=== PATIENT | male | born 1930 | race Caucasian/White ===

== ENCOUNTER 2017-08-05 17:30 | Observation (INO) | payer OTHER ==
[~2017-08-05] VITALS: Ht 180.3 cm; Wt 77.1 kg
--- NOTE | 2017-08-05 20:40 | ED GI/GU/ABDOMINAL COMPLAINT ---
History of Present Illness General Chief Complaint: Male Genitourinary Problems Stated Complaint: PLASCENCIA CATHETER PROBLEMS BLOOD IN URINE Source: patient, old records Exam Limitations: no limitations Vital Signs & Intake/Output Vital Signs & Intake/Output Vital Signs Date Time Temp Pulse Resp B/P B/P Pulse O2 O2 Flow FiO2 Mean Ox Delivery Rate 08/05 2256 61 20 142/63 98 Room Air 08/05 2134 65 20 135/65 99 Room Air 08/05 1839 97.4 63 15 126/66 98 Room Air Room Air ED Intake and Output 08/06 0000 08/05 1200 Intake Total Output Total Balance Patient 170 lb Weight Weight Reported by Patient Measurement Method Allergies Coded Allergies: acetaminophen (From VICODIN) (ITCHING 08/05/17) hydrocodone (From VICODIN) (ITCHING 08/05/17) Triage Note: PT SENT TO ED BY DR. ARTHUR FOR BLOOD PLASCENCIA CATHETER. PT HAD CATHETER PLACED YESTERDAY IN [facility]S OFFICE FOR FREQUENT BLOCKAGES IN BLADDER. PT UNSURE SPECIFICALLY WHAT IT IS. DISCOMFORT IN PENIS WELL. SENT FOR POSSIBLE ABD CT. Triage Nurses Notes Reviewed? yes Onset: Abrupt Duration: day(s): (1), constant Timing: recent history Quality/Severity: aching, moderate, sharpness Severity Numbers: 7 Location: suprapubic, urethral Radiation: no radiation Activities at Onset: none Prior Abdominal Problems: none No Modifying Factors: none Associated Symptoms: DENIES HPI: 86-year-old male on Plavix for history of 2 coronary stents aspirin presents sent in by his urologist Dr. Arthur. Patient states for the past 1 week he's had hematuria he was placed on amoxicillin by his primary care physician Dr. Ashraf and was advised to follow-up with Dr. Arthur which she did today. He placed a Plascencia catheter and advised him to come to the emergency room for a CAT scan and blood work after the patient states he had one episode of dizziness upon standing yesterday. He denies any abdominal pain, or decreased or little output in the Plascencia catheter. No nausea no vomiting no fever no chills (Linda PALOMARES,Brandon) Past History Travel History Traveled to [place] past 21 day No Medical History Any Pertinent Medical History? see below for history Cardiovascular: hypertension, CARDIAC STENT Blood Disorders: NONE Cancer(s): NONE Surgical History Surgical History: bilateral inguinal hernia surgery - Mar 2017 Psychosocial History What is your primary language Danish Tobacco Use: Quit >30 days ago ETOH Use: denies use Illicit Drug Use: denies illicit drug use Family History Hx Contributory? No (Brandon Pop) Review of Systems Review of Systems Constitutional: Reports: see HPI. Comments Review of systems: See HPI, All other systems negative. Constitutional, no chills no fever HEENT: no sore throat no congestion Cardiovascular: No chest pain Skin: no rashes, no change in skin Respiratory: No dyspnea no cough no sputum GI: No nausea no vomiting, : No dysuria no frequency Muscle skeletal: No joint pain, no back pain, no neck pain, Neurologic: , no headache Heme/endocrine: No bruising (Brandon Pop) Physical Exam Physical Exam General Appearance: well developed/nourished, alert, awake Gastrointestinal: normal bowel sounds, soft, non-tender Comments: Well-developed well-nourished person in no acute distress HEENT: Normal EENT exam; PERRL, EOMI, no nystagmus. HEAD is atraumatic. moist mucous membranes. Neck: Supple, no lymphadenopathy, normal range of motion without pain or tenderness Back: Nontender, no CVA tenderness. Full range of motion Cardiovascular: Regular rate and rhythms no murmurs rubs or gallops, normal JVP Respiratory: Chest nontender.There were no bony deformities, no asymmetry. No respiratory distress. Patient speaking in full complete sentences. Breath sounds clear to auscultation bilaterally: NO W/R/R Abdomen: Soft, nontender nondistended, no appreciable organomegaly. Normal bowel sounds. No rebound/guarding, Male : Normal external genitalia, testes nontender. No scrotal swelling or mases, No lesions/discharge. Blood noted to Plascencia bag Extremity: No edema, full range of motion of extremities Neuro: Alert oriented x3, motor sensory normal,. There were no obvious focal neurologic abnormalities. Skin: No appreciable rash on exposed skin, skin is warm and dry. Psych: Mood and affect is normal, memory and judgment is normal. Core Measures ACS in differential dx? No Sepsis Present: No Sepsis Focused Exam Completed? No (Brandon Pop) Progress Differential Diagnosis: ureterolithiasis, urinary retention, UTI/pyelo Plan of Care: Orders Procedure Date/time Status Nothing by Mouth 08/06 B Active Patient Data 08/06 221 Active Pathway - chart 08/05 2306 Active Code Status 08/[address] in observation 08/06 2247 Active ED Holding Orders 08/06 2247 Active Vital Signs 08/06 2247 Active Code Status 08/06 2247 Complete MISTAKE 08/05 2105 Active PARTIAL THROMBOPLASTIN TIME 08/05 2105 Complete PROTHROMBIN TIME 08/05 2105 Complete COMPREHENSIVE METABOLIC PANEL 08/05 2105 Complete CBC WITHOUT DIFFERENTIAL 08/05 2105 Complete CULTURE,URINE 08/05 174 Active URINALYSIS 08/05 174 Complete VTE Mechanical Prophylaxis 08/05 UNK Active Vital Signs 08/05 UNK Active Intake & Output 08/05 UNK Active Plascencia, Insertion/Removal/Asses 08/05 UNK Active Current Medications Sig/Evon Start time Last Medication Dose Stop Time Status Admin Sodium Chloride 1,000 ML .[id number] 08/05 2300 AC 08/05 (Normal Saline 0.9%) 2314 Sodium Chloride 1,000 ML ONCE ONE 08/05 2300 AC (Normal Saline 0.9%) 08/06 0539 Laboratory Tests 08/05/17 2136: Anion Gap 12, Estimated GFR 48 L, BUN/Creatinine Ratio 20.7, Glucose 117 H, Calcium 9.5, Total Bilirubin 0.7, AST 19, ALT 21, Alkaline Phosphatase 93, Total Protein 6.7, Albumin 4.2, Globulin 2.5, Albumin/Globulin Ratio 1.7, PT 12.6 H, INR 1.15, APTT 26, CBC w Diff NO MAN DIFF REQ, RBC 4.29 L, MCV 88.8, MCH 29.5, MCHC 33.3, RDW 13.6, MPV 8.8, Gran % 76.4 H, Lymphocytes % 14.4 L, Monocytes % 7.7, Eosinophils % 1.1, Basophils % 0.4, Absolute Granulocytes 10.3 H, Absolute Lymphocytes 2.0, Absolute Monocytes 1.0 H, Absolute Eosinophils 0.1, Absolute Basophils 0.1 08/05/17 1848: Urine Color BLDY H, Urine Clarity CLDY H, Urine pH , Ur Specific [place] , Urine Protein , Urine Ketones , Urine Nitrite , Urine Bilirubin , Urine Urobilinogen , Ur Leukocyte Esterase , Ur Microscopic SEDIMENT EXAMINED, Urine RBC PACKD H, Urine WBC 50-75 H, Ur Epithelial Cells RARE, Urine Bacteria MOD H, Urine Hemoglobin , Urine Glucose Microbiology 08/05 184 URINE ROUT: Urine Culture - RECD Labs ordered CAT scan ordered. Call placed to urologist 08/05/2017 10:26:40 PM on repeat evaluation patient denies any complaints, he is still making urine through his Plascencia catheter bag discussed with him all his labs pending callback from Dr. Arthur. He denies pain. Case discussed with Dr. Arthur he advised that he is planning to take the patient to the operating room tomorrow morning. He will have the surgical PA place orders I discussed with the patient plan of care my discussion with Dr. Arthur he is resting otherwise in no acute distress Diagnostic Imaging: Viewed by Me: CT Scan. Discussed w/RAD: CT Scan. Radiology Impression: PATIENT: GERALD KOENIG PRESENT AGE: 86 PATIENT ACCOUNT NO: [id number] : 31 LOCATION: [facility] ORDERING PHYSICIAN: Brandon PALOMARES SERVICE DATE: 08/05/17 EXAM TYPE: CAT - CT ABD & PELVIS W/O IV CONTRAS EXAMINATION: CT ABDOMEN AND PELVIS WITHOUT CONTRAST CLINICAL INFORMATION: Hematuria. Plascencia catheter. Urinary retention. COMPARISON: CT scan abdomen pelvis 05/03/2015. Ultrasound of abdomen 11/19/2015 TECHNIQUE: Multidetector volumetric imaging was performed from the superior aspect of the liver through the pubic symphysis. Sagittal and coronal reformatted images were obtained on the technologist's workstation. DLP: 320.54 mGy-cm FINDINGS: LUNG BASES: Lung bases are clear. There is a moderate-sized hernia. There is vascular wall calcification of the coronary arteries. LIVER, GALLBLADDER, AND BILIARY TREE: The liver is normal in size, shape, and attenuation. No focal hepatic lesion or biliary ductal dilatation is present. There are several small densely calcified gallstones at the neck of the gallbladder. No edema around the gallbladder. No bile duct dilatation. PANCREAS: Unremarkable. SPLEEN: Unremarkable. ADRENAL GLANDS: Unremarkable. KIDNEYS AND URETERS: The kidneys are normal in size, shape, and attenuation. No hydronephrosis, hydroureter, or calculi seen. No perinephric stranding. BLADDER: Plascencia catheter within the bladder. Bladder is empty. GASTROINTESTINAL TRACT: There are scattered diverticula left colon and sigmoid. There is no diverticulitis. No acute change of the bowel. No bowel obstruction. No bowel wall thickening or edema. Small volume of stool in the colon. The appendix is not seen. There is no inflammation of the mesentery. The small bowel loops are unremarkable. ABDOMINAL WALL: No significant hernia is appreciated. LYMPH NODES: Normal. VASCULAR: Atherosclerotic vascular wall calcification of aorta and iliac vessels. No aneurysm. PELVIC VISCERA: Prostate is enlarged. Measures 6.5 cm transverse. OSSEOUS STRUCTURES: Degenerative spondylosis spine with multilevel endplate spurs of the vertebrae, disc height narrowing and facet joint arthrosis. IMPRESSION: 1. Enlarged prostate. Plascencia catheter within the bladder. No renal or ureteral calculi. No acute change of the kidneys or the ureter. 2. Cholelithiasis. 3. Mild diverticulosis of the colon. No acute abnormality of the bowel. DICTATED BY: Hunter Cao MD DATE/TIME DICTATED:08/05/172147 COUNTER MAKER:VIRA DATE/TIME TRANSCRIBED:08/05/172147 CONFIDENTIAL, DO NOT COPY WITHOUT APPROPRIATE AUTHORIZATION. <Electronically signed in Other Vendor System> SIGNED BY: Hunter Cao MD 08/05/172155 Initial ED EKG: none (Brandon Pop) Departure Departure Time of Disposition: 2250 Disposition: STILL A PATIENT Condition: Stable Clinical Impression Primary Impression: Hematuria Referrals: Gerald Ashraf MD (PCP/Family) Departure Forms: Customer Survey General Discharge Information Observation Note Spoke With: Presley Arthur MD Physician Advisor Notified: TAYO HOPE,TOÑITO Velasquez Place Patient In: Non-ED OBS Care Area Rationale for Observation: My rational for observation is as follows patient will require TURP, UROLOGY CONSULT/OR GIVEN SIG BLOOD LOSS IN URINE. PREMATURE DISCHARGE WOULD BE MEDICALLY HARMFUL (Brandon Pop) PA/FIELD ARTILLERY CREWMEMBER Co-Sign Statement Statement: ED Attending supervision documentation- [X] I saw and evaluated the patient. I have also reviewed all the pertinent lab results and diagnostic results. I agree with the findings and the plan of care as documented in the PA's/FIELD ARTILLERY CREWMEMBER's documentation. [X] I have reviewed the ED Record and agree with the PA's/FIELD ARTILLERY CREWMEMBER's documentation. [] Additions or exceptions (if any) to the PAs/FIELD ARTILLERY CREWMEMBER's note and plan are summarized below: [Patient to be placed in observation for a TURP in the morning. Patient is having gross hematuria with clots. Patient: Required flushing.] (Tayo HOPE,Toñito Weldon.) (Tayo HOPE,Toñito Weldon.)
[2017-08-05 21:51] LABS: ABSOLUTE BASOPHIL COUNT 0.1 /CUMM (0.0-0.2); ABSOLUTE EOSINOPHIL COUNT 0.1 /CUMM (0.0-0.7); ABSOLUTE GRANULOCYTE CT 10.3 /CUMM (1.4-6.5); BASOPHIL % 0.4 % (0.0-2.0); EOSINOPHIL % 1.1 % (0-5); GRANULOCYTE % 76.4 % (42.2-75.2); HEMATOCRIT 38.1 % (42-52); MEAN CORPUSCULAR HGB 29.5 PG (27.0-31.0); MEAN CORPUSCULAR HGB CONC 33.3 G/DL (33.0-37.0); MEAN CORPUSCULAR VOLUME 88.8 FL (80.0-94.0); MEAN PLATELET VOLUME 8.8 FL (7.4-10.4); PLATELET COUNT 291 /CUMM (130-400); RBC DISTRIBUTION WIDTH 13.6 % (11.5-14.5); RED BLOOD CELL CT 4.29 /CUMM (4.70-6.10); WHITE BLOOD CELL COUNT 13.5 /CUMM (4.8-10.8)
--- NOTE | 2017-08-05 21:56 | CT SCAN REPORT ---
EXAMINATION: CT ABDOMEN AND PELVIS WITHOUT CONTRAST CLINICAL INFORMATION: Hematuria. Berry catheter. Urinary retention. COMPARISON: CT scan abdomen pelvis 05/03/2015. Ultrasound of abdomen 11/19/2015 TECHNIQUE: Multidetector volumetric imaging was performed from the superior aspect of the liver through the pubic symphysis. Sagittal and coronal reformatted images were obtained on the technologist's workstation. DLP: 320.54 mGy-cm FINDINGS: LUNG BASES: Lung bases are clear. There is a moderate-sized hernia. There is vascular wall calcification of the coronary arteries. LIVER, GALLBLADDER, AND BILIARY TREE: The liver is normal in size, shape, and attenuation. No focal hepatic lesion or biliary ductal dilatation is present. There are several small densely calcified gallstones at the neck of the gallbladder. No edema around the gallbladder. No bile duct dilatation. PANCREAS: Unremarkable. SPLEEN: Unremarkable. ADRENAL GLANDS: Unremarkable. KIDNEYS AND URETERS: The kidneys are normal in size, shape, and attenuation. No hydronephrosis, hydroureter, or calculi seen. No perinephric stranding. BLADDER: Berry catheter within the bladder. Bladder is empty. GASTROINTESTINAL TRACT: There are scattered diverticula left colon and sigmoid. There is no diverticulitis. No acute change of the bowel. No bowel obstruction. No bowel wall thickening or edema. Small volume of stool in the colon. The appendix is not seen. There is no inflammation of the mesentery. The small bowel loops are unremarkable. ABDOMINAL WALL: No significant hernia is appreciated. LYMPH NODES: Normal. VASCULAR: Atherosclerotic vascular wall calcification of aorta and iliac vessels. No aneurysm. PELVIC VISCERA: Prostate is enlarged. Measures 6.5 cm transverse. OSSEOUS STRUCTURES: Degenerative spondylosis spine with multilevel endplate spurs of the vertebrae, disc height narrowing and facet joint arthrosis. IMPRESSION: 1. Enlarged prostate. Berry catheter within the bladder. No renal or ureteral calculi. No acute change of the kidneys or the ureter. 2. Cholelithiasis. 3. Mild diverticulosis of the colon. No acute abnormality of the bowel.
[2017-08-05 22:02] LABS: PT 12.6 SEC (9.4-12.5); PTT 26 SEC (25-37)
[2017-08-06 07:14] VITALS: BP 134/64
[2017-08-06 13:43] VITALS: BP 140/64
[2017-08-06 18:30] VITALS: BP 120/58
[2017-08-06 21:48] VITALS: BP 104/64
[2017-08-07 06:48] VITALS: BP 116/56
[2017-08-07] MEDS ORDERED: PROSCAR5 M1 PO (07:24)
[2017-08-07] MEDS ORDERED: CIPRO500 M1 PO (07:24)
--- NOTE | 2017-08-07 07:29 | Operative Report ---
Operative/Inv Procedure Report Surgery Date: 08/06/17 Name of Procedure: CYSTOSCOPY: FULGURATION OF PROSTATE BLEED: EVACULATION OF CLOT Pre-Operative Diagnosis: HEMATURIA-CLOT RETENTION Post-Operative Diagnosis: SAME Estimated Blood Loss: less than 50ml Surgeon/Heel Coverer Machine Operator: Presley Arthur MD Anesthesia: laryngeal mask airway Drains: 20FR 3-WAY LEWIS WITH NS Complications: NONE Operative/Procedure Note Note: The patient was taken to the operating room and placed on the OR table in supine position. Timeout was performed, with the pt. awake, to correctly identify the patient, anesthesia, procedure, and IV antibiotics, and other pertinent perioperative information. After adequate anesthesia and antibiotics, the old Lewis catheter was removed. The patient was then placed in lithotomy stirrups using yellowfin stirrups. The patient was then draped and prepped in the usual surgical fashion. A 26 [place] standard resectoscope sheath with a 30 angle lens and the 24 [place] loop was inserted into the urethra, and then advanced into the bladder without difficulty. A very large bladder clot noted in the bladder, and was Ellix evacuated out. With a clearer vision, the prostate was noted to have an irregular, and ratty surface with severely coapting lobes:despite pts report of NO voiding issues. Additionally, the prostate was hypervascular consistent with vascular over growth. Upon entering the bladder, it was thoroughly and systematically surveyed revealing no evidence of tumor, no evidence of stone, both orifices were difficult to find due to the severe trabeculation and large prostate, but were eventually found in their orthotopic position with clear yellow reflux. The resectoscope was then retracted to the level of the pratik montanum. Under direct visualization the 24 [place] loop was then extended beyond the scope. Under direct visualization, and using the coag current spot cauterization was performed in order to achieve good hemostasis of the prostate lobes. The bladder was re-evaluating and noted to have no untoward injury. Additionally, the prostate channel was noted to have good hemostasis, with a wide open channel. The resectoscope was removed with the bladder full. A 22 [place] couvalier three-way Lewis catheter was inserted without difficulty draining clear fluid. The bladder was again copiously irrigated via the lewis to ensure pattency/ The 30 mL balloon was then filled, and continuous bladder irrigation with normal saline was initiated. Clear and easy drainage of NS from the main port was confirmed with CBI. All sponge needle and instrument count were correct at the end of the case. The patient tolerated the procedure well and was then taken to the recovery room in satisfactory condition. Findings: LARGE HYPERVASCULAR PROSTATE Discharge Disposition: PACU Additional Comments: CBI WITH NS CC: Presley Arthur MD
== END 2017-08-07 14:08 ==
LOC: ERH 17:30 → 2NB 22:48 → ERHI 22:48 → EDBEDREQ 08-06 02:27 → EDBEDREQTM 08-06 02:27 → EDBEDREQDT 08-06 02:27 → ENRESERV 08-06 02:56 → 2NB 08-06 03:48 → ENTRNSPT 08-06 18:00 → EDTRNSPT 08-06 18:15 → EDTRNSPTSTS 08-06 18:15 → CMPTRNSPT 08-06 18:57 → ENPENDDIS 08-07 09:14 → ENTRNSPT 08-07 14:03 → 2NB 08-07 14:08 → EDTRNSPT 08-07 14:34 → EDTRNSPTSTS 08-07 14:34 → CMPTRNSPT 08-07 14:44
PROVIDERS: Physician Assistant Medical
DX: N40.0 Benign prostatic hyperplasia without lower urinary tract symptoms (principal); R31.9 Hematuria, unspecified; Z95.5 Presence of coronary angioplasty implant and graft; R42 Dizziness and giddiness; I10 Essential (primary) hypertension; E78.5 Hyperlipidemia, unspecified; I25.10 Atherosclerotic heart disease of native coronary artery without angina pectoris; K21.9 Gastro-esophageal reflux disease without esophagitis; Z79.01 Long term (current) use of anticoagulants
CPT/HCPCS: 74176; 81001; 87086; 96374; 96376; G0378; J0131; J0696

== ENCOUNTER → 2017-09-17 | Day surgery (SDC) | payer OTHER ==
[~2017-09-17] VITALS: Ht 180.3 cm; Wt 77.1 kg
[~2017-09-17] MED LIST: CIPRO500 M1 PO; PROSCAR5 M1 PO
--- NOTE | 2017-09-17 09:16 | Operative Report ---
Operative/Inv Procedure Report Surgery Date: 09/17/17 Name of Procedure: cystoscopy-extraction of bladder stones: UROLIFT implant (x6) Pre-Operative Diagnosis: bph with retention; hematuria Post-Operative Diagnosis: same, bladder stones Estimated Blood Loss: aaron Surgeon/Paper Machine Supervisor: Presley Arthur MD Anesthesia: moderate sedation, block Drains: 18fr lewis-dc in rr prior to dc home Specimens: bladder stones Complications: none Operative/Procedure Note Note: The patient was taken to the operating room and placed on the OR table in supine position. Timeout was performed, with the patient awake, in order to confirm correct identity, procedure, antibiotics, anesthesia, and other pertinent perioperative information. After adequate anesthesia and antibiotics, the patient was then placed lithotomy stirrups, draped and prepped in the usual surgical fashion, after removing the indwelling Lewis catheter. A 20 [place]ian cystoscope was inserted into the bladder without significant difficulty, noting the bilateral obstructing lobes of the prostate, with small middle lobe. The cystoscope bridge was replaced with the UROLIFT deployment device. The first treatment site was the patient's left base of prostate, approximately 1.5 cm distal to the bladder neck. The distal tip of the delivery device was then angled laterally, approximately 20 at this position to compress the lateral lobe. The trigger was pulled, thereby deploying a needle containing the implant through the prostate. The needle was then retracted, allowing one end of the implant to be delivered to the capsule surface of the prostate. The implant was then tensioned to assure capsular sealing and removal of slack monofilament. The device was then angled back toward midline and slowly advanced proximally until cystoscopic verification of the monofilament being centered in the delivery bay. The urethral end piece was then affixed to the monofilament, thereby tailoring the size of the implant. Excess filament was then severed. The delivery device was then readvanced into the bladder. The delivery device was then replaced with cystoscope, and bridge, and implant location and opening effect was confirmed cystoscopically. The same procedure was then repeated on the right side, just distal to the right bladder neck. And 2 additional implants were delivered proximal to the vera montanum, again one on the right and one in the left side of the prostate following the similar technique. Having re-scoped the prostate lumen, I was not satisfied with the channel opening with the mid-prostate lobes collapsed. Cystoscopy revealed a persistent that area of obstruction, and 2 more implants were delivered in the mid prostate; one on the right lateral lobe, and 2 on the left lateral robe. A total of 6 implants were placed in the patient's anterio prostate, in order to create an open channel. A final cystoscopy was conducted to inspect the location of each implant, and second, to confirm the presence of a continuous anterior channel present through the prostatic urethra, with the irrigation flow turned off. The bladder was then filled with 150 mL of irrigation fluid, and the cystoscope was removed. A 20 [place]ian Lewis was inserted without difficulty, draining clear fluid. patient tolerated procedure well All sponge needle and instrument count were correct at the end of the case. The patient tolerated the procedure well, and taken to the recovery room in satisfactory condition. Discharge Disposition: PACU Additional Comments: 6 urolift implants placed, now with open prostate la. CC: Jerson HOPE,Presley
== END ==
LOC: STS 01:11
DX: N40.1 Benign prostatic hyperplasia with lower urinary tract symptoms (principal); R33.8 Other retention of urine; R31.9 Hematuria, unspecified; R35.1 Nocturia; R39.16 Straining to void; I10 Essential (primary) hypertension; E03.9 Hypothyroidism, unspecified; I25.10 Atherosclerotic heart disease of native coronary artery without angina pectoris; Z95.5 Presence of coronary angioplasty implant and graft
CPT/HCPCS: 82355; L8699